=== PATIENT | female | born 1995 | race Caucasian/White ===

== ENCOUNTER 2017-08-08 22:51 | Observation (INO) ==
[2017-08-08 23:23] LABS: Bilirubin,Urine Negative (Negative); Blood,Urine Negative (Negative); Clarity,Urine Cloudy (Clear); Color,Urine Yellow (Yellow); Glucose,Urine (UA) Normal (Normal); Ketones,Urine Trace mg/dL (Negative); Leukocyte Esterase,Urine Small (Negative); Nitrite,Urine Negative (Negative); Protein,Urine 100 mg/dL (Neg-Trace); Specific Gravity,Urine > 1.030 (1.010-1.025); Urobilinogen,Urine Normal (Normal)
[2017-08-08 23:25] LABS: Bacteria,Urine Many per hpf (None-Few); RBC,Urine 0-3 per hpf (0-3); Squamous Epithelial Cell,Urine Many per lpf (None-Few)
[2017-08-08 23:34] LABS: Hyaline Casts,Urine Few per lpf (None-Few); Mucus,Urine Few (Few)
[2017-08-08 23:35] LABS: WBC,Urine 30-50 per hpf (0-3)
[2017-08-08 23:46] LABS: Amphetamine Screen,Urine Negative ng/mL (Cutoff=1000); Barbiturate Screen,Urine Negative ng/mL (Cutoff=200); Benzodiazepines Screen,Urine Negative ng/mL (Cutoff=200); Cannabinoid Screen,Urine Negative ng/mL (Cutoff = 50); Cocaine Screen,Urine Negative ng/mL (Cutoff= 300); Opiate Screen,Urine Negative ng/mL (Cutoff=300); Phencyclidine Screen,Urine Negative ng/mL (Cutoff=25)
--- NOTE | 2017-08-08 23:57 | OB/GYN Progress Note ---
Date of Encounter: 08/08/17 Time of Encounter: 23:53 - Assessment and Plan (1) 33 weeks gestation of Current Visit: Yes Status: Acute [address] Rico presents to labor and delivery with c/o contractions; denies LOF, VB, headache, vision changes, and epigastric pain. Cervix closed. Reactive NST; occasional contraction per monitor Urine - dehydration Encouraged oral rehydration Sent home with labor precautions Follow up in office with Dr Simmons within 2 weeks and prn. (2) NST (non-stress test) reactive Current Visit: Yes Status: Acute Subjective - Subjective Principal diagnosis: contractions Antepartum ROS: movement normal, contractions, no loss of fluid, no vaginal bleeding Objective - Vital Signs Vital Signs: Intake and Output 08/08/17 08/08/17 08/08/17 07:59 15:59 23:59 Other: Weight 57.8 kg Patient Weight 08/08/17 23:59 Weight 57.8 kg - Exam FHR: auscultation normal, category 1 - Labs Labs: Abnormal lab results Urine Clarity Cloudy (Clear) A 08/08/17 23:15 Ur Specific [place] > 1.030 (1.010-1.025) H 08/08/17 23:15 Urine Protein 100 mg/dL (Neg-Trace) H 08/08/17 23:15 Urine Ketones Trace mg/dL (Negative) H 08/08/17 23:15 Ur Leukocyte Esterase Small (Negative) H 08/08/17 23:15 Urine Microscopic WBC 30-50 per hpf (0-3) H 08/08/17 23:15 Ur Squamous Epith Cells Many per lpf (None-Few) H 08/08/17 23:15 Urine Bacteria Many per hpf (None-Few) H 08/08/17 23:15 Ur Culture Indicated? NO. (NO) A 08/08/17 23:15
== END 2017-08-09 01:12 | disposition home or self-care (01) ==
LOC: 1NENULAB
PROVIDERS: ADMIT Advanced Practice Midwife; ATTEND Advanced Practice Midwife